=== PATIENT | male | born 1935 | race Caucasian/White ===

== ENCOUNTER → 2017-12-06 | Outpatient (CLI) | payer OTHER ==
[~2017-12-06] MED LIST: ASPI81CH PO; FENO54 PO; GLIP5 PO; METF500 PO; METO50 PO; MULVITMINF
== END | disposition home or self-care (01) ==
LOC: EDSTATUS 09:03 → PLD 10:22 → LAB SHORT 10:22
DX: D48.5 Neoplasm of uncertain behavior of skin (principal)
CPT/HCPCS: 88305

== ENCOUNTER 2018-11-14 22:47 | Emergency (ER) | payer OTHER ==
[~2018-11-14] VITALS: Ht 185.4 cm; Wt 90.7 kg
[2018-11-15] MEDS ORDERED: CENTRUM SILVER1 EAC4 PO (00:20)
== END 2018-11-15 01:45 | disposition home or self-care (01) ==
LOC: ER 22:47
DX: S51.812A Laceration without foreign body of left forearm, initial encounter (principal); M54.5 Low back pain; W18.30XA Fall on same level, unspecified, initial encounter; Z79.82 Long term (current) use of aspirin; Z79.899 Other long term (current) drug therapy; Z79.84 Long term (current) use of oral hypoglycemic drugs; I48.91 Unspecified atrial fibrillation; E11.9 Type 2 diabetes mellitus without complications; I10 Essential (primary) hypertension; Z87.891 Personal history of nicotine dependence
CPT/HCPCS: 72170; 90471; 90714; 99283-25

== ENCOUNTER 2019-03-09 13:49 | Inpatient (IN) | payer OTHER ==
[~2019-03-09] VITALS: Ht 185.4 cm; Wt 82.5 kg
[~2019-03-09 13:49] MED LIST changes: -ASPI81CH PO; +Aspir 8181 MG PO; +CENTRUM SILVER1 EAC4 PO
[2019-03-09 14:54] LABS: BASOPHILS ABSOLUTE AUTO 0.07 K/mm3 (0.00-0.23); BASOPHILS PERCENT AUTO 1 % (0-2); EOSINOPHILS ABSOLUTE AUTO 0.23 K/mm3 (0.00-0.68); EOSINOPHILS PERCENT AUTO 2 % (0-6); Hematocrit 40.8 % (37.0-53.0); IMMATURE GRAN ABSOLUTE AUTO 0.03 K/mm3 (0.00-0.10); IMMATURE GRAN PERCENT AUTO 0 % (0-1); LYMPHOCYTES ABSOLUTE AUTO 1.79 K/mm3 (0.84-5.20); LYMPHOCYTES PERCENT AUTO 17 % (21-46); MONOCYTES ABSOLUTE AUTO 0.89 K/mm3 (0.16-1.47); MONOCYTES PERCENT AUTO 8 % (4-13); Mean Corpuscular HGB 30.9 pg (26.0-34.0); Mean Corpuscular HGB Conc 31.9 g/dL (31.5-36.5); Mean Corpuscular Volume 97 fL (80-100); Mean Platelet Volume 9.5 fL (9.1-12.4); NEUTROPHILS ABSOLUTE AUTO 7.67 K/mm3 (1.96-9.15); NEUTROPHILS PERCENT AUTO 72 % (41-73); Platelet Count 328 K/mm3 (150-400); RDW Coefficient Variation 13.9 % (11.7-14.2); RDW Standard Deviation 49.9 fL (35.1-46.3); Red Blood Cell Count 4.21 M/mm3 (4.30-5.90); White Blood Cell Count 10.68 K/mm3 (4.00-11.30)
[2019-03-09 15:16] LABS: Albumin, Blood 3.6 g/dL (3.4-5.0); Albumin/Globulin Ratio 0.9 (0.8-1.8); Bilirubin, Total 0.5 mg/dL (0.1-1.0); Bun/Creatinine Ratio 14.8 (12.0-20.0); Calcium, Blood 9.6 mg/dL (8.5-10.1); Creatinine, Blood 2.3 mg/dL (0.60-1.20); Globulin, Blood 4.1 g/dL (2.2-4.0); Magnesium, Blood 2.5 mg/dL (1.6-2.4); Potassium, Blood 4.4 mmol/L (3.5-5.5); Total Protein, Blood 7.7 g/dL (6.4-8.2)
[2019-03-09] MEDS ORDERED: LAXATIVE PEG 3510 GM PO (16:43)
--- NOTE | 2019-03-09 19:24 | NUR ---
ARRIVAL TO UNIT: RECEIVED REPORT FROM ISAURA GRANT RN. PATIENT UP TO ROOM WITH VET TECH. PATIENT STABLE ON HIS FEET. PATIENT DENIES DISCOMFORT. PATIENT ORIENTED TO CALL LIGHT. PATIENT DENIES NEEDS AT THIS TIME.
[2019-03-10 04:57] LABS: BASOPHILS ABSOLUTE AUTO 0.03 K/mm3 (0.00-0.23); BASOPHILS PERCENT AUTO 0 % (0-2); EOSINOPHILS PERCENT AUTO 3 % (0-6); Hematocrit 35.1 % (37.0-53.0); Hemoglobin 11.2 g/dL (13.5-17.5); IMMATURE GRAN ABSOLUTE AUTO 0.03 K/mm3 (0.00-0.10); IMMATURE GRAN PERCENT AUTO 0 % (0-1); LYMPHOCYTES ABSOLUTE AUTO 1.79 K/mm3 (0.84-5.20); LYMPHOCYTES PERCENT AUTO 27 % (21-46); MONOCYTES ABSOLUTE AUTO 0.61 K/mm3 (0.16-1.47); MONOCYTES PERCENT AUTO 9 % (4-13); Mean Corpuscular HGB 30.9 pg (26.0-34.0); Mean Corpuscular HGB Conc 31.9 g/dL (31.5-36.5); Mean Corpuscular Volume 97 fL (80-100); Mean Platelet Volume 9.4 fL (9.1-12.4); NEUTROPHILS ABSOLUTE AUTO 4.02 K/mm3 (1.96-9.15); NEUTROPHILS PERCENT AUTO 60 % (41-73); Platelet Count 246 K/mm3 (150-400); RDW Coefficient Variation 13.6 % (11.7-14.2); RDW Standard Deviation 48.2 fL (35.1-46.3); Red Blood Cell Count 3.63 M/mm3 (4.30-5.90); White Blood Cell Count 6.68 K/mm3 (4.00-11.30)
[2019-03-10 05:15] LABS: Bun/Creatinine Ratio 15.6 (12.0-20.0); Calcium, Blood 8.4 mg/dL (8.5-10.1); Creatinine, Blood 2.11 mg/dL (0.60-1.20); Potassium, Blood 3.8 mmol/L (3.5-5.5)
--- NOTE | 2019-03-10 06:16 | NUR ---
SHIFT SUMMARY PATIENT ADMITTED FROM ER. IV FLUIDS AND IV PROTONIX DRIP. PATIENT UP WITH MINIMAL ASSIST WITH FWW. CONTINENT OF BOWEL AND BLADDER. NO COMPLAINTS OF PAIN. DR. MOURA CONSULT CALLED IN. PATIENT KEPT NPO. WILL CONTINUE TO MONITOR AND REPORT TO ON COMING RN.
--- NOTE | 2019-03-10 15:17 | NUR ---
PATIENT BROUGHT INTO THE [facility] UNIT ON [facility], PATIENT NPO, HAD A BLOOD GLUCOSE CHECK AND TALKED WITH DR. MOURA.
--- NOTE | 2019-03-10 15:31 | NUR ---
03/10/19 1531 Shawnee Álvarez History, Chart, Medications and Allergies reviewed before start of procedure.PATIENT DETERMINED TO BE ASA APPROPRIATE FOR PROPOFOL SEDATION PRIOR TO START OF PROCEDURE BY .MONITOR INTACT WITH CONTINUOUS PULSE OXIMETRY AND INTERMITTENT BP.3-LEAD EKG REVIEWED WITH PHYSICIAN PRIOR TO START OF PROCEDURE.O2 VIA N/C INTACT THROUGHOUT SEDATION/PROCEDURE.
--- NOTE | 2019-03-10 19:25 | NUR ---
PT RETURNED FROM EGD 1635, ALERT AND AMBULATORY. STANDING UP PUTTING ON COAT AND WANTING TO LEAVE THE HOSPITAL. MILDLY CONFUSED AND SLIGHTLY UNSTEADY, SON HAD TO TALK DAD INTO STATING IN THE HOSPITAL. PT REFUSED TELE AND IVF AT FIRST. VSS. WILL LORNE CLOSELY.
--- NOTE | 2019-03-10 19:35 | NUR ---
SUMMARY- PT HAD EGD TODAY AND RETURNED TO ROOM 1635, MILDLY CONFUSED INITIALLY BUT HAS BECOME PROGRESSIVELY LESS PARANOID AND ABRUBT. AGREED TO ALLOW RN TO PUT IVF BACK ON AND TELE. AND TO ADMINISTER ABX. PT REMINDED OF CALL LIGHT AND ADDED BED ALARM FOR SAFETY. PT TOLERATED CLEAR LIQ AND MILK SHAKE FOR DINNE. WILL REPORT TO NIGHT RN.
--- NOTE | 2019-03-11 04:28 | NUR ---
Shift summary. Pt able to sleep most of shift with no c/o discomfort. Pt recieving antibiotics without problems. VSS. Pt anticipating d/c in am. Pt on telemetry- AV paced 55 per telecommunications cable jointer.
[2019-03-11 05:55] LABS: BASOPHILS ABSOLUTE AUTO 0.03 K/mm3 (0.00-0.23); BASOPHILS PERCENT AUTO 1 % (0-2); EOSINOPHILS ABSOLUTE AUTO 0.17 K/mm3 (0.00-0.68); EOSINOPHILS PERCENT AUTO 3 % (0-6); Hematocrit 32.1 % (37.0-53.0); Hemoglobin 10.1 g/dL (13.5-17.5); IMMATURE GRAN ABSOLUTE AUTO 0.02 K/mm3 (0.00-0.10); IMMATURE GRAN PERCENT AUTO 0 % (0-1); LYMPHOCYTES ABSOLUTE AUTO 1.15 K/mm3 (0.84-5.20); LYMPHOCYTES PERCENT AUTO 17 % (21-46); MONOCYTES ABSOLUTE AUTO 0.62 K/mm3 (0.16-1.47); MONOCYTES PERCENT AUTO 9 % (4-13); Mean Corpuscular HGB 30.5 pg (26.0-34.0); Mean Corpuscular HGB Conc 31.5 g/dL (31.5-36.5); Mean Corpuscular Volume 97 fL (80-100); Mean Platelet Volume 9.4 fL (9.1-12.4); NEUTROPHILS ABSOLUTE AUTO 4.66 K/mm3 (1.96-9.15); NEUTROPHILS PERCENT AUTO 70 % (41-73); Platelet Count 231 K/mm3 (150-400); RDW Coefficient Variation 13.7 % (11.7-14.2); RDW Standard Deviation 48.7 fL (35.1-46.3); Red Blood Cell Count 3.31 M/mm3 (4.30-5.90); White Blood Cell Count 6.65 K/mm3 (4.00-11.30)
[2019-03-11 06:13] LABS: Albumin, Blood 2.7 g/dL (3.4-5.0); Anion Gap 7 mmol/L (6-16); Blood Urea Nitrogen 23 mg/dL (8-24); Bun/Creatinine Ratio 13.2 (12.0-20.0); CO2, Blood 22 mmol/L (21-32); Calcium, Blood 8.1 mg/dL (8.5-10.1); Chloride, Blood 117 mmol/L (98-108); Creatinine, Blood 1.74 mg/dL (0.60-1.20); Glomerular Filtration Rate 40 (60-); Glucose, Blood 105 mg/dL (70-99); Phosphorus, Blood 2.8 mg/dL (2.5-4.9); Potassium, Blood 3.7 mmol/L (3.5-5.5); Sodium, Blood 146 mmol/L (136-145)
--- NOTE | 2019-03-11 17:48 | NUR ---
SHIFT SUMMARY PT EATING A SOFT DIET THIS SHIFT. PT TOLERATING BETTER WITH EACH MEAL. PT REPORTS SOME PAIN WITH EATING BUT THAT IT HAS ALSO BEEN BETTER SINCE TRYING TO EAT BREAKFAST THIS SHIFT. NO NAUSEA THIS SHIFT. PT UP TO BATHROOM WITH ASSISTANCE. NEW IV PLACED AND INFUSING WITHOUT DIFFICULTY. PT HAS HAD NO ACUTE CHANGES THIS SHIFT. PLANS FOR POSSIBLE DISCHARGE TOMORROW. CALL LIGHT IN REACH. WILL CONTINUE TO MONITOR AND REPORT TO ONCOMING RN.
--- NOTE | 2019-03-12 05:06 | NUR ---
SHIFT SUMMARY: 83 Y/O MALE RESTED COMFORTABLY IN BED ALL SHIFT, DENIES PAIN OR NAUSEA, AMBULATED X 1 TO BATHROOM WITH GAIT SLOW AND SLIGHTLY UNSTEADY VIA CANE AND STANDBY ASSIST, BED LOW POSITION WITH CALL LIGHT AT SIDE.
[2019-03-12] MEDS ORDERED: CLOT10 SS (11:34)
[2019-03-12] MEDS ORDERED: HIGH POTENCY P1 EACH PO (11:37)
[2019-03-12] MEDS ORDERED: ONDA4ODT MM (11:38)
[2019-03-12] MEDS ORDERED: CIPR500 PO (11:39)
[2019-03-12] MEDS ORDERED: METR250 PO (11:40)
[2019-03-12] MEDS ORDERED: PANT40 PO (11:41)
--- NOTE | 2019-03-12 12:00 | NUR ---
DISCHARGE NOTE IV DC'D WNL. DISCHARGE MEDICATIONS FAXED TO PREFERED PHARMACY. PT PROVIDED WITH HARDCOPY AND VERBAL INSTRUCTIONS FOR DISCHARGE RE: DIAGNOSES, FOLLOW UP APPOINTMENTS, MEDICATIONS. FAMILY INFORMED OF DISCHARGE. PT AND FAMILY HAD NO FURTHER QUESTIONS. PT DRESSED IN PERSONAL CLOTHING. PERSONAL POSSESSIONS GATHERED. ESCORT ACCOMPANIED PT TO PERSONAL VEHICLE WITH WHEELCHAIR.
== END 2019-03-12 12:01 | disposition home or self-care (01) | DRG 392 ==
LOC: ER 13:49 → MEDS 17:31
PROVIDERS: Internal Medicine Gastroenterology; Physician Assistant; ADMIT Internal Medicine
PROC: 0DB68ZX Excision of Stomach, Via Natural or Artificial Opening Endoscopic, Diagnostic (ICD-10-PCS; 2019-03-10)
PROC: 0DB18ZX Excision of Upper Esophagus, Via Natural or Artificial Opening Endoscopic, Diagnostic (ICD-10-PCS; 2019-03-10)
PROC: 0DB38ZX Excision of Lower Esophagus, Via Natural or Artificial Opening Endoscopic, Diagnostic (ICD-10-PCS; 2019-03-10)
PROC: 0D738ZZ Dilation of Lower Esophagus, Via Natural or Artificial Opening Endoscopic (ICD-10-PCS; principal; 2019-03-10 14:30)
PROC: 0DB98ZX Excision of Duodenum, Via Natural or Artificial Opening Endoscopic, Diagnostic (ICD-10-PCS; 2019-03-10 14:30)
DX: K57.12 Diverticulitis of small intestine without perforation or abscess without bleeding (principal); N17.9 Acute kidney failure, unspecified; E44.0 Moderate protein-calorie malnutrition; Z79.82 Long term (current) use of aspirin; Z79.84 Long term (current) use of oral hypoglycemic drugs; R13.10 Dysphagia, unspecified; I48.0 Paroxysmal atrial fibrillation; I25.10 Atherosclerotic heart disease of native coronary artery without angina pectoris; N18.3 Chronic kidney disease, stage 3 (moderate); Z87.891 Personal history of nicotine dependence; Z66 Do not resuscitate; E11.22 Type 2 diabetes mellitus with diabetic chronic kidney disease; K22.2 Esophageal obstruction; I25.2 Old myocardial infarction; Z95.5 Presence of coronary angioplasty implant and graft; M19.90 Unspecified osteoarthritis, unspecified site; K26.9 Duodenal ulcer, unspecified as acute or chronic, without hemorrhage or perforation; I12.9 Hypertensive chronic kidney disease with stage 1 through stage 4 chronic kidney disease, or unspecified chronic kidney disease
CPT/HCPCS: 36415; 71046; 71250; 74176; 80048; 80053; 80069; 82947; 83735; 84484; 85025; 88305; 88341; 88342; 93005; 93010; 96374; 97116; 97161; 97530; 99285-25; A9270; C9113; J0744; J2704; J7030; J7120

== ENCOUNTER 2019-05-16 08:58 | Day surgery (SDC) | payer OTHER ==
[~2019-05-16] VITALS: Ht 185.4 cm; Wt 87.3 kg
[~2019-05-16 08:58] MED LIST changes: +CIPR500 PO; +CLOT10 SS; +HIGH POTENCY P1 EACH PO; +LAXATIVE PEG 3510 GM PO; +METR250 PO; +ONDA4ODT MM; +PANT40 PO
== END 2019-05-16 10:30 | disposition home or self-care (01) ==
LOC: ORSCSDS 08:58
PROVIDERS: Internal Medicine Gastroenterology
PROC: 0DJ08ZZ Inspection of Upper Intestinal Tract, Via Natural or Artificial Opening Endoscopic (ICD-10-PCS; principal; 2019-05-16 10:15)
DX: Z87.11 Personal history of peptic ulcer disease (principal); Z95.0 Presence of cardiac pacemaker; I10 Essential (primary) hypertension; I48.91 Unspecified atrial fibrillation; E11.9 Type 2 diabetes mellitus without complications; Z87.891 Personal history of nicotine dependence; Z79.82 Long term (current) use of aspirin; Z79.84 Long term (current) use of oral hypoglycemic drugs; Z79.899 Other long term (current) drug therapy
CPT/HCPCS: 82947; J2704; J7120

== ENCOUNTER → 2021-10-11 | Outpatient (CLI) | payer OTHER | END | disposition home or self-care (01) | LOC: LAB 14:12 → LAB SHORT 14:12 | DX: L97.509 Non-pressure chronic ulcer of other part of unspecified foot with unspecified severity (principal); L03.119 Cellulitis of unspecified part of limb | CPT/HCPCS: 87070; 87077; 87147; 87186; 87205 ==

== ENCOUNTER 2021-11-17 08:24 | Day surgery (SDC) | payer OTHER ==
[~2021-11-17] VITALS: Ht 188 cm; Wt 84.4 kg
--- NOTE | 2021-11-17 11:37 | NUR ---
PT BROUGHT BACK TO RECOVERY ROOM VIA GURNEY IN SUPINE POSITION. PT APPEARS TO BE AWAKE, CONSTANT REMINDING DONE BY NURSING STAFF TO PT ABOUT KEEPING HEAD DOWN AND NOT BENDING LEG. PT LEFT GROIN SITE SOFT, NON TENDER, NO ACTIVE BLEEDING OR OOZING NOTED. WOUND ON BOTTOM OF RIGHT FOOT REDRESSED WITH RED CLOTH DOT DRESSING, 4X4 GAUZE, AND KERLEX WRAP. PT FAMILY BROUGHT TO BEDSIDE. TOLERATED PO FLUIDS. VSS. CALL LIGHT IN REACH.
[2021-11-17] MEDS ORDERED: CLOP75 PO (11:42)
--- NOTE | 2021-11-17 12:31 | NUR ---
PT HOB RAISED TO 90 DEGREES, PROVIDED WITH MEAL TRAY, TOLERATES WITH NO DIFFICULTIES. LEFT GROIN SITE SOFT NON TEDNER WITH NO BLEEDING OR OOZING. DRESSING CLEAN, DRY, AND INTACT. WILL CONTINUE TO MONITOR.
--- NOTE | 2021-11-17 13:25 | NUR ---
PT AND SON VERBALIZED UNDERSTANDING OF D/C INSTRUCTIONS. PAPERWORK PROVIDED IN FOLDER. IV REMOVED FROM RFA WITH CATH INTACT. PRESSURE DRESSING APPLIED. PREVIOUS IV IN RAC WAS PULLED OUT PRIOR TO START OF PROCEDURE TODAY, LARGE BRUISE NOTED FROM AC TO MID FOREARM ON RIGHT SIDE. PRESSURE DRESSING ALSO APPLIED OVER THAT REGION. PT AND SON INSTRUCTED TO REMOVED PRESSURE DRESSING IN 2 HOURS, VERBAL UNDERSTANDING FROM BOTH. PT ABLE TO AMBULATE WITH CANE, UNSTEADY GAIT, TAKEN TO PRIVATE VEHICLE VIA W/C. NO ACUTE DISTRESS NOTED AT TIME OF DISCHARGE. LEFT GROIN SITE SOFT NON TENDER WITH NO BLEEDING OR OOZING NOTED. DRESSING REMAINED INTACT.
== END 2021-11-17 13:25 | disposition home or self-care (01) ==
LOC: MHTC 08:24
DX: I70.213 Atherosclerosis of native arteries of extremities with intermittent claudication, bilateral legs (principal); L97.519 Non-pressure chronic ulcer of other part of right foot with unspecified severity; I12.9 Hypertensive chronic kidney disease with stage 1 through stage 4 chronic kidney disease, or unspecified chronic kidney disease; N18.9 Chronic kidney disease, unspecified; E11.22 Type 2 diabetes mellitus with diabetic chronic kidney disease; E78.5 Hyperlipidemia, unspecified; E11.69 Type 2 diabetes mellitus with other specified complication; I25.10 Atherosclerotic heart disease of native coronary artery without angina pectoris; J44.9 Chronic obstructive pulmonary disease, unspecified; Z87.891 Personal history of nicotine dependence; Z79.899 Other long term (current) drug therapy; Z20.822 Contact with and (suspected) exposure to COVID-19
CPT/HCPCS: 76937; 99152; 99153; C1725; C1760; C1769; C1887; C1894; J1644; J2250; J3010; J7030; J7040; Q9967

== ENCOUNTER 2021-12-09 10:36 | Day surgery (SDC) | payer OTHER ==
[~2021-12-09] VITALS: Ht 185.4 cm; Wt 84.4 kg
[~2021-12-09 10:36] MED LIST changes: +CLOP75 PO
[2021-12-09] MEDS ORDERED: CLOP75 PO (16:48)
--- NOTE | 2021-12-09 17:20 | NUR ---
PATIENT IS SITING UP AT A 45 DEGREE ANGLE, INSISTENT AND UNCOOPERATIVE.REFUSING TO WEAR OXYMETER OR NIBP CUFF. SON REMAINS AT THE BEDSIDE. DIET ORDERED.
--- NOTE | 2021-12-09 17:30 | NUR ---
DIET ARRIVED AND SET UP FOR PATIENT. PATIENT RIGHT GROIN STABLE. NO HEMAOTOMA, NO BLEEDING NOTED. FEEDING SELF. MIND AND ATTITUDE STABLIZING WITH DRUGS CLEARING SYSTEM. PATIENT BECOMING MORE STABLE AND COOPERATIVE.
--- NOTE | 2021-12-09 17:56 | NUR ---
1810 PATIENT ALLOWED UP TO THE RESTRROM. PIV REMOVED AND CATH TIP INTACT. PRESSURE DRESSING APPLIED. RIGHT GROIN DRESSING UNCHANGED. PATIENT CHANGED INTO OWN CLOTHES WITH ASSISTANCE FROM SON. MARIBEL ORIENTED AND COOPERATIVE WITH SON AND STAFF. SON WILL STAY WITH PATIENT TONIGHT. REVIEWED DISHARGE INSTRUCTIONS AND SCRIPT CALLED INTO [facility] ON [address]. SON VERBALIZED UNDERSTANDING AND WILL CONE BAKER MACHINE NEW SCRIPT. PATIENT DISCHARGED AT 1830 VIA WHEELCHAIR TO SON BRAKE REPAIRER RAILROAD.
== END 2021-12-09 23:12 | disposition home or self-care (01) ==
LOC: MHTC 10:36
DX: I70.213 Atherosclerosis of native arteries of extremities with intermittent claudication, bilateral legs (principal); L97.519 Non-pressure chronic ulcer of other part of right foot with unspecified severity; E11.69 Type 2 diabetes mellitus with other specified complication; I12.9 Hypertensive chronic kidney disease with stage 1 through stage 4 chronic kidney disease, or unspecified chronic kidney disease; N18.30 Chronic kidney disease, stage 3 unspecified; E11.22 Type 2 diabetes mellitus with diabetic chronic kidney disease; E78.5 Hyperlipidemia, unspecified; I25.10 Atherosclerotic heart disease of native coronary artery without angina pectoris; Z87.891 Personal history of nicotine dependence; Z79.899 Other long term (current) drug therapy; Z20.822 Contact with and (suspected) exposure to COVID-19
CPT/HCPCS: 76937; 99152; 99153; A9270; C1725; C1760; C1769; C1885; C1887; C1894; J1644; J2250; J2310; J3010; J7030; J7040; Q9967

== ENCOUNTER → 2021-12-31 | Outpatient (CLI) | payer OTHER ==
[2021-12-31 12:18] LABS: Source, Urine Clean Catch
[2021-12-31 14:02] LABS: Appearance, Urine Clear (Clear); Bilirubin, Urine Neg (Neg); Blood, Urine 2+ (Neg); Color, Urine Yellow (P-Yellow); Glucose Qualitative, Urine Neg (Neg); Ketones, Urine Neg (Neg); Leukocyte Esterase, Urine Neg (Neg); Nitrite, Urine Neg (Neg); Protein, Urine 1+ (Neg); Specific Gravity, Urine 1.015 (1.003-1.022); Urobilinogen, Urine NORM (Normal)
[2021-12-31 14:28] LABS: Bacteria Few /hpf; Squamous Epithelial Cells Rare /hpf (Few)
[2021-12-31 14:29] LABS: Hyaline Casts 0-2 /lpf (0-2)
[2021-12-31 14:33] LABS: Protein, Urine Random 18.8 mg/dL (0.0-11.9); Protein/Creat Ratio, Ur Random 0.1
== END | disposition home or self-care (01) ==
LOC: LAB 12:17 → LAB SHORT 12:17
PROVIDERS: Internal Medicine Nephrology
DX: N18.4 Chronic kidney disease, stage 4 (severe) (principal)
CPT/HCPCS: 81001; 82570; 84156

== ENCOUNTER → 2022-04-18 | Outpatient (CLI) | payer OTHER ==
[2022-04-18 15:47] LABS: BASOPHILS ABSOLUTE AUTO 0.03 K/mm3 (0.00-0.23); BASOPHILS PERCENT AUTO 0 % (0-2); EOSINOPHILS PERCENT AUTO 0 % (0-6); Hematocrit 47.9 % (37.0-53.0); Hemoglobin 15.7 g/dL (13.5-17.5); IMMATURE GRAN ABSOLUTE AUTO 0.11 K/mm3 (0.00-0.10); IMMATURE GRAN PERCENT AUTO 1 % (0-1); LYMPHOCYTES ABSOLUTE AUTO 1.59 K/mm3 (0.84-5.20); LYMPHOCYTES PERCENT AUTO 11 % (21-46); MONOCYTES ABSOLUTE AUTO 0.69 K/mm3 (0.16-1.47); MONOCYTES PERCENT AUTO 5 % (4-13); Mean Corpuscular HGB 30.5 pg (26.0-34.0); Mean Corpuscular HGB Conc 32.8 g/dL (31.5-36.5); Mean Corpuscular Volume 93 fL (80-100); Mean Platelet Volume 9.4 fL (9.1-12.4); NEUTROPHILS ABSOLUTE AUTO 11.83 K/mm3 (1.96-9.15); NEUTROPHILS PERCENT AUTO 83 % (41-73); Platelet Count 309 K/mm3 (150-400); RDW Coefficient Variation 14.7 % (11.7-14.2); RDW Standard Deviation 50.4 fL (35.1-46.3); Red Blood Cell Count 5.15 M/mm3 (4.30-5.90); White Blood Cell Count 14.25 K/mm3 (4.00-11.30)
[2022-04-18 15:58] LABS: Albumin, Blood 3.6 g/dL (3.4-5.0); Albumin/Globulin Ratio 0.8 (0.8-1.8); Bilirubin, Total 0.6 mg/dL (0.1-1.0); Bun/Creatinine Ratio 23.5 (12.0-20.0); Calcium, Blood 9.5 mg/dL (8.5-10.1); Creatinine, Blood 2.34 mg/dL (0.60-1.20); Globulin, Blood 4.7 g/dL (2.2-4.0); Potassium, Blood 4.2 mmol/L (3.5-5.5); Total Protein, Blood 8.3 g/dL (6.4-8.2)
== END | disposition home or self-care (01) ==
LOC: LAB SHORT 15:43 → LAB 15:43
PROVIDERS: Physician Assistant Medical
DX: R10.11 Right upper quadrant pain (principal)
CPT/HCPCS: 80053; 83690; 85025

== ENCOUNTER → 2022-04-26 | Outpatient (CLI) | payer OTHER ==
[2022-04-26 12:00] LABS: BASOPHILS ABSOLUTE AUTO 0.05 K/mm3 (0.00-0.23); BASOPHILS PERCENT AUTO 0 % (0-2); EOSINOPHILS ABSOLUTE AUTO 0.05 K/mm3 (0.00-0.68); EOSINOPHILS PERCENT AUTO 0 % (0-6); Hematocrit 47.8 % (37.0-53.0); Hemoglobin 14.7 g/dL (13.5-17.5); IMMATURE GRAN ABSOLUTE AUTO 0.09 K/mm3 (0.00-0.10); IMMATURE GRAN PERCENT AUTO 1 % (0-1); LYMPHOCYTES PERCENT AUTO 13 % (21-46); MONOCYTES ABSOLUTE AUTO 1.01 K/mm3 (0.16-1.47); MONOCYTES PERCENT AUTO 8 % (4-13); Mean Corpuscular HGB 29.9 pg (26.0-34.0); Mean Corpuscular HGB Conc 30.8 g/dL (31.5-36.5); Mean Corpuscular Volume 97 fL (80-100); Mean Platelet Volume 10.7 fL (9.1-12.4); NEUTROPHILS ABSOLUTE AUTO 9.83 K/mm3 (1.96-9.15); NEUTROPHILS PERCENT AUTO 78 % (41-73); Platelet Count 255 K/mm3 (150-400); RDW Coefficient Variation 14.2 % (11.7-14.2); Red Blood Cell Count 4.91 M/mm3 (4.30-5.90); White Blood Cell Count 12.63 K/mm3 (4.00-11.30)
[2022-04-26 12:40] LABS: Albumin/Globulin Ratio 0.7 (0.8-1.8); Bilirubin, Total 0.5 mg/dL (0.1-1.0); Bun/Creatinine Ratio 26.4 (12.0-20.0); Calcium, Blood 9.4 mg/dL (8.5-10.1); Creatinine, Blood 1.78 mg/dL (0.60-1.20); Globulin, Blood 4.4 g/dL (2.2-4.0); Potassium, Blood 4.7 mmol/L (3.5-5.5); Total Protein, Blood 7.4 g/dL (6.4-8.2)
== END | disposition home or self-care (01) ==
LOC: LAB 10:58 → LAB SHORT 10:58
PROVIDERS: Family Medicine
DX: R10.9 Unspecified abdominal pain (principal)
CPT/HCPCS: 80053; 85025

== ENCOUNTER 2022-09-17 15:52 | Emergency (ER) | payer OTHER ==
[~2022-09-17] VITALS: Ht 185.4 cm; Wt 71.7 kg
[~2022-09-17 15:52] MED LIST changes: +ALLO100 PO; +DONE5 PO; +MULVITA PO; +OMEP20ER PO; +Prednisone10 MG PO
[2022-09-17 16:31] LABS: BASOPHILS ABSOLUTE AUTO 0.05 K/mm3 (0.00-0.23); BASOPHILS PERCENT AUTO 1 % (0-2); EOSINOPHILS ABSOLUTE AUTO 0.17 K/mm3 (0.00-0.68); EOSINOPHILS PERCENT AUTO 2 % (0-6); Hematocrit 40.9 % (37.0-53.0); Hemoglobin 13.3 g/dL (13.5-17.5); IMMATURE GRAN ABSOLUTE AUTO 0.02 K/mm3 (0.00-0.10); IMMATURE GRAN PERCENT AUTO 0 % (0-1); LYMPHOCYTES ABSOLUTE AUTO 1.21 K/mm3 (0.84-5.20); LYMPHOCYTES PERCENT AUTO 12 % (21-46); MONOCYTES ABSOLUTE AUTO 0.94 K/mm3 (0.16-1.47); MONOCYTES PERCENT AUTO 9 % (4-13); Mean Corpuscular HGB 29.8 pg (26.0-34.0); Mean Corpuscular HGB Conc 32.5 g/dL (31.5-36.5); Mean Corpuscular Volume 92 fL (80-100); Mean Platelet Volume 9.1 fL (9.1-12.4); NEUTROPHILS ABSOLUTE AUTO 7.71 K/mm3 (1.96-9.15); NEUTROPHILS PERCENT AUTO 76 % (41-73); Platelet Count 250 K/mm3 (150-400); RDW Standard Deviation 47.6 fL (35.1-46.3); Red Blood Cell Count 4.46 M/mm3 (4.30-5.90)
[2022-09-17 16:52] LABS: Albumin/Globulin Ratio 0.6 (0.8-1.8); Bun/Creatinine Ratio 20.5 (12.0-20.0); Calcium, Blood 8.6 mg/dL (8.5-10.1); Creatinine, Blood 1.22 mg/dL (0.60-1.20); Globulin, Blood 4.8 g/dL (2.2-4.0); Potassium, Blood 4.1 mmol/L (3.5-5.5); Total Protein, Blood 7.8 g/dL (6.4-8.2)
[2022-09-17 17:35] LABS: Influenza A, PCR NEGATIVE (NEGATIVE); Influenza B, PCR NEGATIVE (NEGATIVE); Resp Syncytial Virus, PCR NEGATIVE (NEGATIVE); SARS-Cov-2 (COVID-19) PCR, MMC NEGATIVE (NEGATIVE)
[2022-09-17 18:05] LABS: Thyroid Stimulating Hormone 1.96 uIU/mL (0.360-4.800)
[2022-09-17 20:22] LABS: Source, Urine Clean Catch
[2022-09-17 20:24] LABS: Bilirubin, Urine Neg (Neg); Blood, Urine Neg (Neg); Glucose Qualitative, Urine Neg (Neg); Ketones, Urine Neg (Neg); Leukocyte Esterase, Urine Neg (Neg); Nitrite, Urine Neg (Neg); Protein, Urine Neg (Neg); Urobilinogen, Urine NORM (Normal)
[2022-09-17 20:41] LABS: Appearance, Urine Clear (Clear); Color, Urine Yellow (P-Yellow)
[2022-09-17] MEDS ORDERED: Voltaren100 GM TOP (20:45)
== END 2022-09-17 21:27 | disposition home or self-care (01) ==
LOC: ER 15:52
PROVIDERS: Emergency Medicine; Physician Assistant; Student in an Organized Health Care Education/Training Program
DX: R53.1 Weakness (principal); E86.0 Dehydration; M19.032 Primary osteoarthritis, left wrist; R40.4 Transient alteration of awareness; I25.10 Atherosclerotic heart disease of native coronary artery without angina pectoris; E11.9 Type 2 diabetes mellitus without complications; Z20.822 Contact with and (suspected) exposure to COVID-19; Z95.0 Presence of cardiac pacemaker; Z79.899 Other long term (current) drug therapy
CPT/HCPCS: 0241U; 36415; 70450; 73110; 80053; 81003; 82550; 84443; 84484; 85025; 93005; 93010; J7120